=== PATIENT | male | born 1990 | race African-American/Black ===

== ENCOUNTER 2017-05-22 02:46 | Inpatient (IN) | payer BC ==
[2017-05-22] VITALS (8 sets, daily range): BP systolic 126–156; BP diastolic 58–88; PULSE 52–89; RESP 16–20; TEMP 96.3–98.8; O2SAT 97–100
[~2017-05-22] VITALS: Ht 177.8 cm; Wt 82.0 kg
--- NOTE | 2017-05-22 03:49 | PD ---
HPI Chief Complaint: ENT Complaint Time Seen by Provider: 03:37 Travel History International Travel<30 days: No Contact w/Intl Traveler<30days: No Traveled to known affect area: No History of Present Illness HPI Patient is a transfer patient from [facility]. Patient's complaint is right neck pain and mass/lump. Patient was seen at an urgent care where he was diagnosed with ear infection and given p.o. antibiotics however after a week or so he still did not feel better and fell actually worse so he went back to the clinic where it was just reinforced. Patient returned a third time to the ER where he had a CAT scan done, where he had a early abscess discovered that required ear nose and throat evaluation case was discussed with Dr. Cheikh Jones No known drug allergies Patient denies any past medical or surgical history. PFSH Past Medical History Immunizations Current: Yes Tetanus Vaccination: Unknown Influenza Vaccination: No Social History Alcohol Use: No Tobacco Use: No Substance Use: No Allergies-Medications (Allergen,Severity, Reaction): Coded Allergies: No Known Allergies (Unverified , 05/22/17) Reported Meds & Prescriptions Reported Meds & Active Scripts Active No Active Prescriptions or Reported Medications Review of Systems General / Constitutional: No: Fever Eyes: No: Visual changes HENT: Positive: Masses (2 right jaw area) Cardiovascular: No: Chest Pain or Discomfort Respiratory: No: Shortness of Breath Gastrointestinal: No: Abdominal Pain Genitourinary: No: Dysuria Musculoskeletal: No: Pain Skin: No Rash Neurologic: No: Weakness Psychiatric: No: Depression Endocrine: No: Polydipsia Hematologic/Lymphatic: No: Easy Bruising Physical Exam Narrative GENERAL: SKIN: Warm and dry. HEAD: Atraumatic. Normocephalic. EYES: Pupils equal and round. No scleral icterus. No injection or drainage. ENT: No nasal bleeding or discharge. Mucous membranes pink and moist. Patient has a right parotid mass that is firm, with tenderness on palpation, mild right- sided submandibular lymphadenopathy is present as well. No uvular edema NECK: Trachea midline. No JVD. No stridor CARDIOVASCULAR: Regular rate and rhythm. RESPIRATORY: No accessory muscle use. Clear to auscultation. Breath sounds equal bilaterally. No wheezing GASTROINTESTINAL: Abdomen soft, non-tender, nondistended. Hepatic and splenic margins not palpable. MUSCULOSKELETAL: Extremities without clubbing, cyanosis, or edema. No obvious deformities. NEUROLOGICAL: Awake and alert. No obvious cranial nerve deficits. Motor grossly within normal limits. Five out of 5 muscle strength in the arms and legs. Normal speech. PSYCHIATRIC: Appropriate mood and affect; insight and judgment normal. Data Data Last Documented VS Vital Signs Date Time Temp Pulse Resp B/P (MAP) Pulse Ox O2 Delivery O2 Flow Rate FiO2 05/22/17 03:13 98.5 89 16 139/83 (101) 97 MDM Medical Decision Making Medical Screen Exam Complete: Yes Emergency Medical Condition: Yes Medical Record Reviewed: Yes Differential Diagnosis Not applicable patient is a transfer after a thorough workup by another emergency facility Narrative Course Blood work performed at [facility] shows the following: CBC showed white blood count of 6.2, no anemia 13/40, normal platelet count of 225. Neutrophils of 55%, 1 band Patient's chemistry shows glucose of 109 BUN of 14 creatinine 1.17 GFR 98.9, albumin of 4.2, AST of 35 ALT of 84 alk phos of 50 and a bilirubin total 0.2 all of these were within normal limits. CT of neck read by the radiologist Dr. Yosvany Laura has the following impression: Acute right parotitis with hypoattenuating collection at the tail likely reflecting phlegmon/developing abscess #2 right facial cellulitis superficial to the right parotid gland and stylist apprentice space, no abscess within the stylist apprentice space. Cellulitic changes superficial to the right sternocleidomastoid muscle. Right cervical reactive adenopathy, left maxillary central incisor periapical cyst/granuloma Transfer was accepted by ear nose and throat doctor Cheikh JONES. [facility] will be called for admission. Diagnosis Primary Impression: Acute right parotitis with early abscess Admitting Information Admitting Physician Requests: Observation Scripts No Active Prescriptions or Reported Meds Luis Diaz MD May 22, 2017 03:49
[2017-05-22] MEDS ORDERED: MORPHINE SULFATE 2 MG/ML INJ IV PUSH PRN (04:15)
[2017-05-22] MEDS ORDERED: NALOXONE HCL 0.4 MG/ML AMP IV PUSH PRN (04:15)
[2017-05-22] MEDS ORDERED: SODIUM CHLORIDE 0.9% FLUSH 10 ML FLUSH IV FLUSH PRN (04:15)
[2017-05-22] MEDS: CLINDAMYCIN 900 MG/NS PREMIX 50 ML IV SCH ×3 (04:37→21:47)
[2017-05-22 04:46] LABS: AUTOMATED NEUTROPHIL # 2.9 TH/MM3 (1.8-7.7); BASOPHIL # 0.1 TH/MM3 (0-0.2); BASOPHIL % 1.3 % (0.0-2.0); EOSINOPHIL % 0.9 % (0.0-4.0); HEMATOCRIT 37.6 % (39.0-51.0); HEMOGLOBIN 12.8 GM/DL (13.0-17.0); LYMPH % 25.5 % (9.0-44.0); LYMPHOCYTE # 1.1 TH/MM3 (1.0-4.8); MEAN CELL VOLUME 85.6 FL (80.0-100.0); MEAN CORPUSCULAR HEMOGLOBIN 29.3 PG (27.0-34.0); MEAN CORPUSCULAR HGB CONC 34.2 % (32.0-36.0); MEAN PLATELET VOLUME 8.1 FL (7.0-11.0); MONO % 3.7 % (0.0-8.0); MONOCYTE # 0.2 TH/MM3 (0-0.9); NEUT % 68.6 % (16.0-70.0); PLATELET COUNT 220 TH/MM3 (150-450); RED BLOOD COUNT 4.39 MIL/MM3 (4.50-5.90); RED CELL DISTRIBUTION WIDTH 13.3 % (11.6-17.2); WHITE BLOOD COUNT 4.3 TH/MM3 (4.0-11.0)
[2017-05-22 04:56] LABS: INTERNATIONAL NORMALIZED RATIO 1.1 RATIO; PROTHROMBIN TIME - PATIENT 10.8 SEC (9.8-11.6)
[2017-05-22] MEDS: DEXAMETHASONE SOD PHOS 4 MG/ML VIAL IV PUSH SCH ×5 (05:13→22:56)
[2017-05-22] MEDS: PIPERACIL-TAZO 4.5 GM PREMIX 100 ML IV SCH ×4 (05:13→22:56)
[2017-05-22] MEDS: PANTOPRAZOLE SODIUM 40 MG VIAL IV PUSH SCH (05:14)
[2017-05-22 05:16] LABS: ALBUMIN 3.3 GM/DL (3.4-5.0); ALT (GPT) 85 U/L (12-78); AST (GOT) 36 U/L (15-37); BICARBONATE 26.9 MEQ/L (21.0-32.0); BLOOD UREA NITROGEN 13 MG/DL (7-18); CALCIUM 8.4 MG/DL (8.5-10.1); CHLORIDE 107 MEQ/L (98-107); CREATININE 1.07 MG/DL (0.60-1.30); GLOMERULAR FILTRATION RATE 101 ML/MIN (>89); GLUCOSE,RANDOM 110 MG/DL (74-106); SODIUM (NA) 139 MEQ/L (136-145)
[2017-05-22 05:18] LABS: ALKALINE PHOSPHATASE 50 U/L (45-117); TOTAL BILIRUBIN ADULT 0.3 MG/DL (0.2-1.0); TOTAL PROTEIN 7.3 GM/DL (6.4-8.2)
[2017-05-22] MEDS: SODIUM CHLORIDE 0.9% FLUSH 10 ML FLUSH IV FLUSH SCH ×2 (09:43→21:48)
[2017-05-22] MEDS: LACTOBACILLUS ACIDOPHILUS 1 GM PACKET PO SCH ×4 (09:43→21:00)
--- NOTE | 2017-05-22 14:32 | HHI.HP ---
[facility] Primary [facility] Physician No Primary Care Physician Admission Diagnosis RIGHT PAROTITIS WITH EARLY ABSCESS Diagnoses: Chief Complaint: Right neck/cheek swelling Travel History International Travel<30 Days: No Contact w/Intl Traveler <30 Da: No Traveled to Known Affected Are: No History of Present Illness This is a 26-year-old male with no past medical history complaining of right neck/cheek swelling. Patient stated that he was seen in urgent care where he was given antibiotics about 2 weeks ago. He cannot remember what type antibodies. Patient stated that it did not help with his symptoms and he continues to have swelling so went to emergency department. Patient was originally at [facility] and was transferred here. Patient had a CAT scan done which showed an early abscess that requires ENT evaluation. Case was discussed with Dr. Cheikh Browning, ENT. Patient denies any fevers or chills. He has no other complaints. Patient stated that after he has been treated here with IV antibiotics his swelling has improved drastically. All other review of system reviewed and negative. Past Family Social History Past Medical History Denied past medical history. Past Surgical History Denies any past surgical history. Reported Medications Reported Meds & Active Scripts Active No Active Prescriptions or Reported Medications Allergies: Coded Allergies: No Known Allergies (Unverified , 05/22/17) Active Ordered Medications Current Medications Sodium Chloride (NS Flush) 2 ml UNSCH PRN IV FLUSH FLUSH AFTER USING IV ACCESS ; Start 05/22/17 at 04:15 Sodium Chloride (NS Flush) 2 ml BID IV FLUSH Last administered on 05/22/17at 09: 43; Start 05/22/17 at 09:00 Naloxone HCl (Narcan Inj) 0.4 mg UNSCH PRN IV PUSH SEE LABEL COMMENTS; Start at 04:15 Clindamycin/ Sodium Chloride 50 ml @ 100 mls/hr Q8H IV Last administered on at 12:37; Start 05/22/17 at 04:00 Piperacillin Sod/ Tazobactam Sod 100 ml @ 200 mls/hr Q6H IV Last administered on 05/22/17at 12:06; Start 05/22/17 at 05:00 Dexamethasone Sodium Phosphate (Decadron Inj) 4 mg Q6HR IV PUSH Last administered on 05/22/17at 12:37; Start 05/22/17 at 06:00 Pantoprazole Sodium (Protonix Inj) 40 mg Q24H IV PUSH Last administered on 05/22at 05:14; Start 05/22/17 at 06:00 Lactobacillus Acidophilus (Lactinex Pkt) 1 gm QID PO Last administered on at 09:43; Start 05/22/17 at 09:00 Morphine Sulfate (Morphine Inj) 2 mg Q3H PRN IV PUSH pain >5; Start 05/22/17 at 04:15 Family History Denies any past family history. Social History Denies tobacco use. Occasionally smokes marijuana and drinks alcohol. Denies any other illicit drug use. Physical Exam Vital Signs Vital Signs Date Time Temp Pulse Resp B/P (MAP) Pulse Ox O2 Delivery O2 Flow Rate FiO2 05/22/17 12:00 96.3 62 17 127/66 (86) 100 05/22/17 08:00 97.3 76 17 127/58 (81) 98 05/22/17 05:39 97.9 54 18 129/76 (93) 97 05/22/17 04:42 52 16 126/88 (101) 98 Room Air 05/22/17 03:13 98.5 89 16 139/83 (101) 97 Physical Exam GENERAL: This is a well-nourished, well-developed patient, in no apparent distress. SKIN: No rashes, ecchymoses or lesions. Cool and dry. HEAD: Atraumatic. Normocephalic. No temporal or scalp tenderness. EYES: Pupils equal round and reactive. Extraocular motions intact. No scleral icterus. No injection or drainage. ENT: Nose without bleeding, purulent drainage or septal hematoma. Throat without erythema, tonsillar hypertrophy or exudate. Uvula midline. Airway patent. right sided swelling of lower mandibular area and neck with some induration. NECK: Trachea midline. No JVD or lymphadenopathy. Supple, nontender, no meningeal signs. CARDIOVASCULAR: Regular rate and rhythm without murmurs, gallops, or rubs. RESPIRATORY: Clear to auscultation. Breath sounds equal bilaterally. No wheezes , rales, or rhonchi. GASTROINTESTINAL: Abdomen soft, non-tender, nondistended. No hepato-splenomegaly , or palpable masses. No guarding. MUSCULOSKELETAL: Extremities without clubbing, cyanosis, or edema. No joint tenderness, effusion, or edema noted. No calf tenderness. Negative Homans sign bilaterally. NEUROLOGICAL: Awake and alert. Cranial nerves II through XII intact. Motor and sensory grossly within normal limits. Five out of 5 muscle strength in all muscle groups. Normal speech. Laboratory Laboratory Tests Test 05/22/17 04:32 White Blood Count 4.3 Red Blood Count 4.39 Hemoglobin 12.8 Hematocrit 37.6 Mean Corpuscular Volume 85.6 Mean Corpuscular Hemoglobin 29.3 Mean Corpuscular Hemoglobin Concent 34.2 Red Cell Distribution Width 13.3 Platelet Count 220 Mean Platelet Volume 8.1 Neutrophils (%) (Auto) 68.6 Lymphocytes (%) (Auto) 25.5 Monocytes (%) (Auto) 3.7 Eosinophils (%) (Auto) 0.9 Basophils (%) (Auto) 1.3 Neutrophils # (Auto) 2.9 Lymphocytes # (Auto) 1.1 Monocytes # (Auto) 0.2 Eosinophils # (Auto) 0.0 Basophils # (Auto) 0.1 CBC Comment DIFF FINAL Differential Comment Prothrombin Time 10.8 Prothromb Time International Ratio 1.1 Blood Urea Nitrogen 13 Creatinine 1.07 Random Glucose 110 Total Protein 7.3 Albumin 3.3 Calcium Level 8.4 Alkaline Phosphatase 50 Aspartate Amino Transf (AST/SGOT) 36 Alanine Aminotransferase (ALT/SGPT) 85 Total Bilirubin 0.3 Sodium Level 139 Potassium Level 4.4 Chloride Level 107 Carbon Dioxide Level 26.9 Anion Gap 5 Estimat Glomerular Filtration Rate 101 Result Diagram: 05/22/1743105/22/17431 Caprini VTE Risk Assessment Caprini VTE Risk Assessment: No/Low Risk (score <= 1) Caprini Risk Assessment Model Point Value = 1 Point Value = 2 Point Value = 3 Point Value = 5 Age 41-60 Minor surgery BMI > 25 kg/m2 Swollen legs Varicose veins or History of unexplained or recurrent spontaneous Oral contraceptives or hormone replacement Sepsis (< 1 month) Serious lung disease, including pneumonia (< 1 month) Abnormal pulmonary function Acute myocardial infarction Congestive heart failure (< 1 month) History of inflammatory bowel disease Medical patient at bed rest Age 61-74 Arthroscopic surgery Major open surgery (> 45 min) Laparoscopic surgery (> 45 min) Malignancy Confined to bed (> 72 hours) Immobilizing plaster cast Central venous access Age >= 75 History of VTE Family history of VTE Factor V Leiden Prothrombin [id number] Lupus anticoagulant Anticardiolipin antibodies Elevated serum homocysteine Heparin-induced thrombocytopenia Other congenital or acquired thrombophilia Stroke (< 1 month) Elective arthroplasty Hip, pelvis, or leg fracture Acute spinal cord injury (< 1 month) Prophylaxis Regimen Total Risk Factor Score Risk Level Prophylaxis Regimen 0-1 Low Early ambulation 2 Moderate Order ONE of the following: *Sequential Compression Device (SCD) *Heparin 5000 units SQ BID 3-4 Higher Order ONE of the following medications: *Heparin 5000 units SQ TID *Enoxaparin/Lovenox 40 mg SQ daily (WT < 150 kg, CrCl > 30 mL/min) *Enoxaparin/Lovenox 30 mg SQ daily (WT < 150 kg, CrCl > 10-29 mL/min) *Enoxaparin/Lovenox 30 mg SQ BID (WT < 150 kg, CrCl > 30 mL/min) AND/OR *Sequential Compression Device (SCD) 5 or more Highest Order ONE of the following medications: *Heparin 5000 units SQ TID (Preferred with Epidurals) *Enoxaparin/Lovenox 40 mg SQ daily (WT < 150 kg, CrCl > 30 mL/min) *Enoxaparin/Lovenox 30 mg SQ daily (WT < 150 kg, CrCl > 10-29 mL/min) *Enoxaparin/Lovenox 30 mg SQ BID (WT < 150 kg, CrCl > 30 mL/min) AND *Sequential Compression Device (SCD) Assessment and Plan Assessment and Plan This is a 26-year-old male with no past medical history who presented with right sided lower cheek/neck swelling Acute right parotitis with early forming abscess/cellulitis -CT scan from [facility] showed acute right parotitis with hypoattenuating collection at the tail likely reflecting phlegmon/developing abscess #2 right facial cellulitis superficial to the right parotid gland and knock out hand space, no abscess within the knock out hand space. Cellulitic changes superficial to the right sternocleidomastoid muscle. Right cervical reactive adenopathy, left maxillary central incisor periapical cyst/granuloma/ -Patient was put on clindamycin/Zosyn. Will continue current regimen although probably can discontinue 1 of them. Will wait for ENT evaluation. -He is also on Decadron with great improvement. -ENT consult. -On IV fluids. Continue n.p.o. pending ENT consult. DVT prophylaxis -Low risk. Encourage ambulation. Code Status full Discussed Condition With patient Physician Certification 2 Midnight Certification Type: Admission for Inpatient Services Order for Inpatient Services The services are ordered in accordance with Medicare regulations or non- Medicare payer requirements, as applicable. In the case of services not specified as inpatient-only, they are appropriately provided as inpatient services in accordance with the 2-midnight benchmark. Estimated LOS (days): 3 3 days is the estimated time the patient will need to remain in the hospital, assuming treatment plan goals are met and no additional complications. Post-Hospital Plan: [place] Ingrid Liz MD May 22, 2017 14:32
[2017-05-22] MEDS: SODIUM CHLOR 0.9% 1000 ML INJ 1,000 ML IV SCH ×2 (15:00→22:56)
[2017-05-23 03:00] VITALS: BP 140/70; PULSE 74; RESP 16; TEMP 98.4; O2SAT 100
[2017-05-23] MEDS: CLINDAMYCIN 900 MG/NS PREMIX 50 ML IV SCH (04:00)
[2017-05-23] MEDS: PIPERACIL-TAZO 4.5 GM PREMIX 100 ML IV SCH ×2 (04:12→10:32)
[2017-05-23] MEDS: PANTOPRAZOLE SODIUM 40 MG VIAL IV PUSH SCH (05:20)
[2017-05-23] MEDS: DEXAMETHASONE SOD PHOS 4 MG/ML VIAL IV PUSH SCH (05:20)
[2017-05-23 06:20] LABS: HEMATOCRIT 37.3 % (39.0-51.0); HEMOGLOBIN 12.8 GM/DL (13.0-17.0); MEAN CELL VOLUME 85.5 FL (80.0-100.0); MEAN CORPUSCULAR HEMOGLOBIN 29.4 PG (27.0-34.0); MEAN CORPUSCULAR HGB CONC 34.3 % (32.0-36.0); MEAN PLATELET VOLUME 8.4 FL (7.0-11.0); PLATELET COUNT 248 TH/MM3 (150-450); RED BLOOD COUNT 4.37 MIL/MM3 (4.50-5.90); RED CELL DISTRIBUTION WIDTH 13.3 % (11.6-17.2); WHITE BLOOD COUNT 12.4 TH/MM3 (4.0-11.0)
[2017-05-23 06:46] LABS: BICARBONATE 24.4 MEQ/L (21.0-32.0); CALCIUM 8.1 MG/DL (8.5-10.1); CREATININE 1.06 MG/DL (0.60-1.30)
[2017-05-23 08:46] VITALS: BP 156/91; PULSE 75; RESP 18; TEMP 97.8; O2SAT 100
[2017-05-23] MEDS: SODIUM CHLORIDE 0.9% FLUSH 10 ML FLUSH IV FLUSH SCH (09:00)
[2017-05-23] MEDS: LACTOBACILLUS ACIDOPHILUS 1 GM PACKET PO SCH (09:00)
--- NOTE | 2017-05-23 09:13 | HHI.PR ---
Subjective Remarks This is a pleasant 26 y/ol Male who came to ER with right neck/cheek swelling, seen in urgent care and given antibiotics for two weeks, Patient was originally at [facility] ER and was transferred here. Patient had a CAT scan done which showed an early abscess that requires ENT evaluation. Case was discussed with Dr. Cheikh Browning, ENT. 05/23: Seen by ENT doctor Cheikh Browning and recommended for discharge and follow in his office, will continue Augmentin and Medrol dose-pack s outpatient. No nausea, vomit or diarrhea improving edema. Objective Vital Signs Date Time Temp Pulse Resp B/P (MAP) Pulse Ox O2 Delivery O2 Flow Rate FiO2 05/23/17 08:46 97.8 75 18 156/91 (112) 100 05/23/17 03:00 98.4 74 16 140/70 (93) 100 05/22/17 23:00 98.2 84 20 156/68 (97) 100 05/22/17 20:00 98.8 72 20 141/83 (102) 100 05/22/17 16:00 96.7 66 17 130/60 (83) 99 05/22/17 12:00 96.3 62 17 127/66 (86) 100 I/O 05/22/17 05/22/17 05/22/17 05/23/17 05/23/17 05/23/17 07:00 15:00 23:00 07:00 15:00 23:00 Intake Total 150 ml 50 ml 1970 ml Balance 150 ml 50 ml 1970 ml Intake Oral 720 ml IV Total 150 ml 50 ml 1250 ml # Voids 3 # Bowel Movements 1 Result Diagram: 05/23/17 0447 05/23/17 044 Imaging No new imaging studies. Procedures None Other Results Laboratory Tests Test 05/22/17 04:32 05/23/17 04:47 Neutrophils (%) (Auto) 68.6 % Lymphocytes (%) (Auto) 25.5 % Monocytes (%) (Auto) 3.7 % Eosinophils (%) (Auto) 0.9 % Basophils (%) (Auto) 1.3 % Neutrophils # (Auto) 2.9 TH/MM3 Lymphocytes # (Auto) 1.1 TH/MM3 Monocytes # (Auto) 0.2 TH/MM3 Eosinophils # (Auto) 0.0 TH/MM3 Basophils # (Auto) 0.1 TH/MM3 CBC Comment DIFF FINAL Differential Comment Prothrombin Time 10.8 SEC Prothromb Time International Ratio 1.1 RATIO Blood Urea Nitrogen 13 MG/DL 14 MG/DL Creatinine 1.07 MG/DL 1.06 MG/DL Random Glucose 110 MG/DL 120 MG/DL Total Protein 7.3 GM/DL Albumin 3.3 GM/DL Calcium Level 8.4 MG/DL 8.1 MG/DL Alkaline Phosphatase 50 U/L Aspartate Amino Transf (AST/SGOT) 36 U/L Alanine Aminotransferase (ALT/SGPT) 85 U/L Total Bilirubin 0.3 MG/DL Sodium Level 139 MEQ/L 141 MEQ/L Potassium Level 4.4 MEQ/L 3.7 MEQ/L Chloride Level 107 MEQ/L 107 MEQ/L Carbon Dioxide Level 26.9 MEQ/L 24.4 MEQ/L White Blood Count 12.4 TH/MM3 Red Blood Count 4.37 MIL/MM3 Hemoglobin 12.8 GM/DL Hematocrit 37.3 % Mean Corpuscular Volume 85.5 FL Mean Corpuscular Hemoglobin 29.4 PG Mean Corpuscular Hemoglobin Concent 34.3 % Red Cell Distribution Width 13.3 % Platelet Count 248 TH/MM3 Mean Platelet Volume 8.4 FL Anion Gap 10 MEQ/L Estimat Glomerular Filtration Rate 102 ML/MIN Objective Remarks GENERAL: This is a well-nourished, well-developed patient, in no apparent distress. SKIN: No rashes, ecchymoses or lesions. Cool and dry. HEAD: Atraumatic. Normocephalic. No temporal or scalp tenderness. EYES: Pupils equal round and reactive. Extraocular motions intact. No scleral icterus. No injection or drainage. ENT: Nose without bleeding, purulent drainage or septal hematoma. Throat without erythema, tonsillar hypertrophy or exudate. Uvula midline. Airway patent. right sided swelling of lower mandibular area and neck with some induration. NECK: Trachea midline. No JVD or lymphadenopathy. Supple, nontender, no meningeal signs. CARDIOVASCULAR: Regular rate and rhythm without murmurs, gallops, or rubs. RESPIRATORY: Clear to auscultation. Breath sounds equal bilaterally. No wheezes , rales, or rhonchi. GASTROINTESTINAL: Abdomen soft, non-tender, nondistended. No hepato-splenomegaly , or palpable masses. No guarding. MUSCULOSKELETAL: Extremities without clubbing, cyanosis, or edema. No joint tenderness, effusion, or edema noted. No calf tenderness. Negative Homans sign bilaterally. NEUROLOGICAL: Awake and alert. Cranial nerves II through XII intact. Motor and sensory grossly within normal limits. Five out of 5 muscle strength in all muscle groups. Normal speech. Medications and IVs Current Medications Medications (Trade) Dose Ordered Sig/Bell Route Start Time Stop Time Status Last Admin (NS Flush) 2 ml UNSCH PRN IV FLUSH 05/22/17 04:15 (NS Flush) 2 ml BID IV FLUSH 05/22/17 09:00 05/22/17 21:48 (Narcan Inj) 0.4 mg UNSCH PRN IV PUSH 05/22/17 04:15 Clindamycin/ Sodium Chloride 50 ml @ 100 mls/hr Q8H IV 05/22/17 04:00 05/23/17 04:00 Piperacillin Sod/ Tazobactam Sod 100 ml @ 200 mls/hr Q6H IV 05/22/17 05:00 05/23/17 04:12 (Decadron Inj) 4 mg Q6HR IV PUSH 05/22/17 06:00 05/23/17 05:20 (Protonix Inj) 40 mg Q24H IV PUSH 05/22/17 06:00 05/23/17 05:20 (Lactinex Pkt) 1 gm QID PO 05/22/17 09:00 05/22/17 09:43 (Morphine Inj) 2 mg Q3H PRN IV PUSH 05/22/17 04:15 Sodium Chloride 1,000 ml @ 100 mls/hr Q10H IV 05/22/17 15:00 05/22/17 22:56 A/P Assessment and Plan This is a 26-year-old male with no past medical history who presented with right sided lower cheek/neck swelling Acute right parotitis with early forming abscess/cellulitis seen by ENT and recommended for discharge and follow in his office continue Augmentin and Medrol Dosepak -CT scan from [facility] showed acute right parotitis with hypoattenuating collection at the tail likely reflecting phlegmon/developing abscess #2 right facial cellulitis superficial to the right parotid gland and eye specialist space, no abscess within the eye specialist space. Cellulitic changes superficial to the right sternocleidomastoid muscle. Right cervical reactive adenopathy, left maxillary central incisor periapical cyst/granuloma/ -Patient was put on clindamycin/Zosyn. Will continue current regimen although probably can discontinue 1 of them. -He is also on Decadron with great improvement. -On IV fluids. re started diet. DVT prophylaxis -Low risk. Encourage ambulation. Code Status full Discussed Condition With patient, nurse. Discharge Planning discharge home now. Harvey Whitfield MD May 23, 2017 09:13
--- NOTE | 2017-05-23 15:35 | HHI.DS ---
Discharge Summary Admission Date May 22, 2017 at 04:09 Discharge Date: May 23, 2017 Admitting Diagnosis RIGHT PAROTITIS WITH EARLY ABSCESS (1) Acute parotitis ICD Code: K11.21 - Acute sialoadenitis Diagnosis: Principal Procedures None Brief History - From Admission This is a 26-year-old male with no past medical history complaining of right neck/cheek swelling. Patient stated that he was seen in urgent care where he was given antibiotics about 2 weeks ago. He cannot remember what type antibodies. Patient stated that it did not help with his symptoms and he continues to have swelling so went to emergency department. Patient was originally at [facility] and was transferred here. Patient had a CAT scan done which showed an early abscess that requires ENT evaluation. Case was discussed with Dr. Cheikh Browning, ENT. Patient denies any fevers or chills. He has no other complaints. Patient stated that after he has been treated here with IV antibiotics his swelling has improved drastically. All other review of system reviewed and negative. CBC/BMP: 05/23/17 0447 05/23/17 0447 Significant Findings Laboratory Tests Test 05/22/17 04:32 05/23/17 04:47 Red Blood Count 4.39 MIL/MM3 (4.50-5.90) 4.37 MIL/MM3 (4.50-5.90) Hemoglobin 12.8 GM/DL (13.0-17.0) 12.8 GM/DL (13.0-17.0) Hematocrit 37.6 % (39.0-51.0) 37.3 % (39.0-51.0) Random Glucose 110 MG/DL (74-106) 120 MG/DL (74-106) Albumin 3.3 GM/DL (3.4-5.0) Calcium Level 8.4 MG/DL (8.5-10.1) 8.1 MG/DL (8.5-10.1) Alanine Aminotransferase (ALT/SGPT) 85 U/L (12-78) White Blood Count 12.4 TH/MM3 (4.0-11.0) Imaging No new imaging studies. PE at Discharge GENERAL: This is a well-nourished, well-developed patient, in no apparent distress. SKIN: No rashes, ecchymoses or lesions. Cool and dry. HEAD: Atraumatic. Normocephalic. No temporal or scalp tenderness. EYES: Pupils equal round and reactive. Extraocular motions intact. No scleral icterus. No injection or drainage. ENT: Nose without bleeding, purulent drainage or septal hematoma. Throat without erythema, tonsillar hypertrophy or exudate. Uvula midline. Airway patent. right sided swelling of lower mandibular area and neck with some induration. NECK: Trachea midline. No JVD or lymphadenopathy. Supple, nontender, no meningeal signs. CARDIOVASCULAR: Regular rate and rhythm without murmurs, gallops, or rubs. RESPIRATORY: Clear to auscultation. Breath sounds equal bilaterally. No wheezes , rales, or rhonchi. GASTROINTESTINAL: Abdomen soft, non-tender, nondistended. No hepato-splenomegaly , or palpable masses. No guarding. MUSCULOSKELETAL: Extremities without clubbing, cyanosis, or edema. No joint tenderness, effusion, or edema noted. No calf tenderness. Negative Homans sign bilaterally. NEUROLOGICAL: Awake and alert. Cranial nerves II through XII intact. Motor and sensory grossly within normal limits. Five out of 5 muscle strength in all muscle groups. Normal speech. Hospital Course This is a pleasant 26 y/ol Male who came to ER with right neck/cheek swelling, seen in urgent care and given antibiotics for two weeks, Patient was originally at [facility] and was transferred here. Patient had a CAT scan done which showed an early abscess that requires ENT evaluation. Case was discussed with Dr. Cheikh Browning, ENT. 05/23: Seen by ENT doctor Cheikh Browning and recommended for discharge and follow in his office, will continue Augmentin and Medrol dose-pack s outpatient. No nausea, vomit or diarrhea improving edema. Assessment and Plan This is a 26-year-old male with no past medical history who presented with right sided lower cheek/neck swelling Acute right parotitis with early forming abscess/cellulitis seen by ENT and recommended for discharge and follow in his office continue Augmentin and Medrol Dosepak -CT scan from [facility] showed acute right parotitis with hypoattenuating collection at the tail likely reflecting phlegmon/developing abscess #2 right facial cellulitis superficial to the right parotid gland and structures engineer space, no abscess within the structures engineer space. Cellulitic changes superficial to the right sternocleidomastoid muscle. Right cervical reactive adenopathy, left maxillary central incisor periapical cyst/granuloma/ -Patient was put on clindamycin/Zosyn. Will continue current regimen although probably can discontinue 1 of them. -He is also on Decadron with great improvement. -On IV fluids. re started diet. DVT prophylaxis -Low risk. Encourage ambulation. Code Status full Discussed Condition With patient, nurse. Discharge Planning discharge home now. Pt Condition on Discharge: Good Discharge Disposition: Discharge Home Discharge Time: <= 30 minutes Discharge Instructions DIET: Follow Instructions for: As Tolerated, No Restrictions Activities you can perform: Regular-No Restrictions Harvey Whitfield MD May 23, 2017 15:35
== END 2017-05-23 13:42 | disposition home or self-care (01) | DRG 155 ==
LOC: NEPE 02:46 → NEDA 04:09 → HCIS 18:19
PROVIDERS: ADMIT Internal Medicine; ATTEND Internal Medicine
DX: K11.21 Acute sialoadenitis (principal); K12.2 Cellulitis and abscess of mouth; K04.8 Radicular cyst; F12.90 Cannabis use, unspecified, uncomplicated
CPT/HCPCS: 80048; 80053; 85025; 85027; 85610; 99285; C9113; J1100; J2543; J7030